=== PATIENT | female | born 1990 | race African-American/Black ===

== ENCOUNTER 2016-11-22 09:19 | Emergency (ER) | payer OTHER ==
[~2016-11-22] VITALS: Ht 152.4 cm; Wt 42.5 kg
[~2016-11-22 09:19] MED LIST: ACET500C5 PO; ALBU18HF INHALATION; ALBU8.5H3 INH; BENZ100C70 PO; CEPH-443 PO; CYCL-319 PO; DOCU-144 PO; GUAI-637 PO; HYDR-906 PO; IBUP-1542 PO; IBUP400T22 PO; LORA1TAB54 PO; NAPR-260 PO; NITR-58 PO; NPH10OT LEFT EAR; ONDA4TAB35 PO
[2016-11-22 09:31] VITALS: Ht 152.4 cm; Wt 42.5 kg
--- NOTE | 2016-11-22 10:25 | ERD ---
ER Documentation Chief Complaint Date/Time DATE: 11/22/16 TIME: 10:18 Chief Complaint HEADACHE SINCE THIS MORNING, BILATERAL FLANK PAIN (VAGUE ONSET) HPI This is a 26-year-old female presents emergency department for headache 1 day and chronic flank pain. Patient states she developed bitemporal headache this morning that feels like pressure. Patient denies this being the worst headache she is ever had or thunderclap type headache. Denies blurry vision, photophobia , diplopia, loss of vision or change in vision. Patient is alert. No loss of consciousness or altered level of consciousness. No confusion. No increased lethargy. Patient does report some nasal congestion. No cough, shortness breath or difficulty breathing. Denies any neck pain or stiffness. No dizziness, syncope or presyncope. Denies any weakness. No rash. Last menstrual period 11/14/2016. No head injury or trauma. Patient states she does have chronic flank pain that has been on and off since 2014. Patient has been seeing her primary care provider who diagnosed her with nephrolithiasis and "enlarged" kidneys. Patient denies any dysuria or hematuria. No pelvic pain, abdominal pain, nausea or vomiting. ROS All systems reviewed and are negative except as per history of present illness. Medications Home Meds Active Scripts Ibuprofen* (Motrin*) 400 Mg Tab, 400 MG PO Q6, #15 TAB Prov:JERRY PUENTES NP 11/22/16 Etcgewcavzsll-Hlwfhcorcf-Sunkyqng-Codeine* (Fioricet w/Codeine*) [id number] -30MG Cap, 1 CAP PO Q4H Y for PAIN LEVEL 1-5, #10 CAP Prov:JERRY PUENTES NP 11/22/16 Neomycin/Polymyxin/Hydrocort* (Cortisporin* Otic) 10 Ml Susp, 4 DROP LEFT EAR QID for 7 Days, EA Prov:POLINA FRANK PA-C 07/10/16 Albuterol Sulfate* (Ventolin HFA*) 18 Gm Hfa.aer.ad, 2 PUFF INHALATION Q4H, #1 INHALER Prov:POLINA FRANK PA-C 07/10/16 Loratadine/Pseudoephedrine* (Claritin-D* 12 Hr) 5-120 Mg Tab.er.12h, 1 TAB PO Q12, #15 TAB.SA Prov:POLINA FRANK PA-C 07/10/16 Benzonatate* (Tessalon Perle*) 100 Mg Capsule, 100 MG PO TID, #20 CAP Prov:POLINA FRANK PA-C 07/10/16 Cephalexin* (Keflex*) 500 Mg Capsule, 500 MG PO QID for 10 Days, CAP Prov:ELIECER BYRD NP 04/22/16 Cyclobenzaprine Hcl* (Cyclobenzaprine Hcl*) 10 Mg Tablet, 10 MG PO TID, #15 TAB Prov:ELIECER BYRD NP 04/22/16 Ibuprofen* (Motrin*) 600 Mg Tab, 600 MG PO Q6H Y for PAIN AND OR ELEVATED TEMP, #30 TAB Prov:ELIECER BYRD NP 04/22/16 Hydrocodone Bit-Acetaminophen ([place]) 5-325 Mg Tablet, 1 TAB PO QHS Y for PAIN for 7 Days, #7 TAB 0 Refills Prov:VANESSA POOL PA-C 01/12/16 Ibuprofen* (Motrin*) 400 Mg Tab, 400 MG PO Q6 for 7 Days, #30 TAB 0 Refills Prov:VANESSA POOL PA-C 01/12/16 Acetaminophen* (Tylophen*) 500 Mg Capsule, 500 MG PO Q6H Y for PAIN, #30 TAB Prov:POLINA FRANK PA-C 07/28/15 Ibuprofen* (Motrin*) 400 Mg Tab, 400 MG PO Q6H Y for PAIN AND OR ELEVATED TEMP, #30 TAB Prov:POLINA FRANK PA-C 07/28/15 Albuterol Sulfate* (Proair HFA*) 8.5 Gm Hfa.aer.ad, 2 PUFF INH Q4H Y for WHEEZING AND SOB, #1 INHALER Prov:POLINA FRANK PA-C 07/28/15 Nitrofurantoin Monohyd Macrocr* (Macrobid*) 100 Mg Capsr, 100 MG PO BID for 7 Days, CAP Prov:POLINA FRANK PA-C 07/28/15 Naproxen* (Naprosyn*) 500 Mg Tablet, 500 MG PO BID Y for PAIN AND/OR INFLAMMATION, #30 TAB Prov:RIVERA WALLACE 02/22/15 Ibuprofen* (Ibuprofen*) 600 Mg Tablet, 600 MG PO Q6 for 30 Days, TAB Prov:RIVERA WALLACE 02/22/15 Docusate Sodium* (Colace*) 100 Mg Capsule, 100 MG PO TID, #30 Prov:RIVERA WALLACE 02/22/15 Ondansetron Hcl* (Zofran* ODT) 4 mg -ODT Tab.disper, 4 MG PO Q6 Y for NAUSEA AND /OR VOMITING, #10 TAB Prov:RIVERA WALLACE 02/22/15 Reported Medications Guaifenesin* (Robitussin*) 100 Mg/5 Ml Syrup, 100 MG PO Q2H Y for COUGH, ML 05/07/14 Allergies Allergies: Coded Allergies: No Known Allergy (Unverified , 05/07/14) PMhx/Soc History of Surgery: No Anesthesia Reaction: No Hx Neurological Disorder: No Hx Respiratory Disorders: No Hx Cardiac Disorders: No Hx Psychiatric Problems: No Hx Miscellaneous Medical Probl: Yes (Kidney Stones January 2016) Hx Alcohol Use: No Hx Substance Use: Yes (Smokes weed) Hx Tobacco Use: No Smoking Status: Never smoker Physical Exam Vitals Vital Signs Date Time Temp Pulse Resp B/P Pulse Ox O2 Delivery O2 Flow Rate FiO2 11/22/16 09:31 99.4 61 16 134/82 100 Physical Exam Const: Alert, cut-wox-dqwqrpmmh, oriented to person place and time Head: Atraumatic Eyes: Normal Conjunctiva ENT: Normal External Ears, Nose and Mouth. Neck: Full range of motion..~ No meningismus. Resp: Clear to auscultation bilaterally. No wheezing, rhonchi or crackles. Cardio: Regular rate and rhythm, no murmurs Abd: Soft, non tender, non distended. Normal bowel sounds Skin: No petechiae or rashes Back: No midline or flank tenderness. No CVA tenderness Ext: No cyanosis, or edema Neur: Awake and alert Psych: Normal Mood and Affect Result Diagram: 11/22/16 1201 11/22/16 1201 Results 24 hrs Laboratory Tests Test 11/22/16 10:30 11/22/16 12:01 Bedside Urine pH (LAB) 5.5 Bedside Urine Protein (LAB) Negative Bedside Urine Glucose (UA) Negative Bedside Urine Ketones (LAB) 2+ Bedside Urine Blood 1+ Bedside Urine Nitrite (LAB) Negative Bedside Urine Leukocyte Esterase (L Negative White Blood Count 4.810^3/ul Red Blood Count 4.1410^6/ul Hemoglobin 12.5g/dl Hematocrit 38.9% Mean Corpuscular Volume 94.0fl Mean Corpuscular Hemoglobin 30.2pg Mean Corpuscular Hemoglobin Concent 32.1g/dl Red Cell Distribution Width 12.7% Platelet Count 63288^3/UL Mean Platelet Volume 8.9fl Neutrophils % 62.4% Lymphocytes % 27.9% Monocytes % 7.6% Eosinophils % 1.5% Basophils % 0.4% Nucleated Red Blood Cells % 0.0/100WBC Neutrophils # 3.010^3/ul Lymphocytes # 1.310^3/ul Monocytes # 0.410^3/ul Eosinophils # 0.110^3/ul Basophils # 0.010^3/ul Nucleated Red Blood Cells # 0.010^3/ul Sodium Level 136mmol/L Potassium Level 4.2mmol/L Chloride Level 104mmol/L Carbon Dioxide Level 26mmol/L Anion Gap 10 Blood Urea Nitrogen 8mg/dl Creatinine 0.66mg/dl Glucose Level 84mg/dl Calcium Level 9.8mg/dl Total Bilirubin 0.8mg/dl Direct Bilirubin 0.00mg/dl Indirect Bilirubin 0.8mg/dl Aspartate Amino Transf (AST/SGOT) 24IU/L Alanine Aminotransferase (ALT/SGPT) 18IU/L Alkaline Phosphatase 62IU/L Total Protein 8.1g/dl Albumin 4.7g/dl Globulin 3.40g/dl Albumin/Globulin Ratio 1.38 Current Medications Medications (Trade) Dose Ordered Sig/Glenny Route PRN Reason Start Time Stop Time Status Last Admin Dose Admin Acetam/Butalbital/ Caffeine/Codeine (Fioricet/ Codeine) 1 cap ONCE ONCE PO 11/22/16 10:30 11/22/16 10:31 DC 11/22/16 10:35 Procedures/MDM ED COURSE: The patient was stable throughout ED course. I kept the patient and/or family informed of laboratory and diagnostic imaging results throughout the ED course. Laboratory CBC shows no significant infection or anemia CMP no significant electrolyte imbalance Urine dip 1+ blood, 2+ ketones Patient: HIPOLITO ROCK : 1990 Age: 26 Sex: F MR #: [id number] [facility] #: [id number] DOS: 11/22/16 1048 Ordering MD: JERRY PUENTES NP Location: [facility]TE Room/Bed: PROCEDURE: Renal US. CLINICAL INDICATION: Flank pain TECHNIQUE: Multiple sonographic images of the kidneys were obtained. The images were reviewed on a PACS workstation. COMPARISON: No prior studies are available for comparison. FINDINGS: The right kidney measures 8.4 cm. The left kidney measures 10.4 cm. The kidneys demonstrate normal echogenicity. No masses, stones or hydronephrosis are identified. The bladder is collapsed. IMPRESSION: Small, but otherwise unremarkable right kidney. Unremarkable left kidney. MDM: This is a 26-year-old female presenting to emergency department for headache 1 day starting this morning. Patient feels pressure to bitemporal area. Patient has not tried any medications for this prior to arrival. Patient given Fioricet with codeine while in the ED. No neuro deficits. Patient does have some nasal congestion. No vision changes, blurry vision, photophobia, diplopia, loss of vision or change in vision. Denies neck pain or stiffness. No dizziness, weakness or fainting. Denies any muscle weakness, numbness, tingling or problems with balance or speech. Denies dysuria or hematuria. No abdominal pain, pelvic pain, nausea, vomiting or diarrhea. Urine negative for infection. Renal ultrasound reviewed by radiologist as small but otherwise unremarkable right kidney. Unremarkable left kidney. Upon reassessment, patient states headache has resolved. Patient states she continues to have flank pain. This is a chronic problem that she has had for the past few years since 2015. Differential diagnosis includes but not limited to migraine headache, cluster headache, tension headache TMJ, sinus headache, nephrolithiasis, Low suspicion for meningitis, encephalitis, subarachnoid hemorrhage, subdural hematoma, intracranial bleeding or tumor or obstructive uropathy. Patient is appropriate for outpatient management and instructed to follow-up with primary care provider for repeat assessment and additional management. Return to ED for any high fever, chest pain, difficulty breathing, shortness breath, wheezing, vomiting, diarrhea, abdominal pain or any new or worsening symptoms. Patient verbalizes understanding. All questions answered at discharge. Departure Diagnosis: Primary Impression: Headache Headache type: unspecified Headache chronicity pattern: acute headache Intractability: not intractable Qualified Code: R51 - Acute nonintractable headache, unspecified headache type Additional Impression: Flank pain Condition: Stable JERRY PUENTES NP Nov 22, 2016 10:24
[2016-11-22 10:29] LABS: URINE BLOOD (Dip) POC 1+ (NEGATIVE)
[2016-11-22] MEDS ORDERED: ACET/BUTAL/CAFF/CODEINE CAP PO ONE (10:30)
[2016-11-22 12:18] LABS: ADD SCAN DIFF NO
[2016-11-22 12:22] LABS: BASOPHILS % 0.4 % (0.0-2.0); EOSINOPHILS # 0.1 10^3/ul (0.0-0.5); EOSINOPHILS % 1.5 % (0.0-7.0); HEMATOCRIT 38.9 % (37.0-47.0); HEMOGLOBIN 12.5 g/dl (12.0-16.0); LYMPHOCYTES # 1.3 10^3/ul (0.8-2.9); LYMPHOCYTES % 27.9 % (15.0-51.0); MEAN CORPUSCULAR HEMOGLOBIN 30.2 pg (29.0-33.0); MEAN CORPUSCULAR HGB CONC 32.1 g/dl (32.0-37.0); MEAN PLATELET VOLUME 8.9 fl (7.4-10.4); MONOCYTE # 0.4 10^3/ul (0.3-0.9); MONOCYTES % 7.6 % (0.0-11.0); NEUTROPHILS % 62.4 % (39.0-77.0); PLATELET COUNT 318 10^3/UL (140-415); RED BLOOD COUNT 4.14 10^6/ul (4.20-5.40); RED CELL DISTRIBUTION WIDTH 12.7 % (11.5-14.5); WHITE BLOOD COUNT 4.8 10^3/ul (4.8-10.8)
[2016-11-22 12:35] LABS: ALBUMIN 4.7 g/dl (3.3-4.9); ALBUMIN/GLOBULIN RATIO 1.38; BILIRUBIN,INDIRECT 0.8 mg/dl (0-1.1); BILIRUBIN,TOTAL 0.8 mg/dl (0.2-1.3); CALCIUM 9.8 mg/dl (8.4-10.2); CREATININE 0.66 mg/dl (0.44-1.00); POTASSIUM 4.2 mmol/L (3.5-5.1); TOTAL PROTEIN 8.1 g/dl (6.1-8.1)
--- NOTE | 2016-11-22 13:00 | RADRPT ---
PROCEDURE: Renal US. CLINICAL INDICATION: Flank pain TECHNIQUE: Multiple sonographic images of the kidneys were obtained. The images were reviewed on a PACS workstation. COMPARISON: No prior studies are available for comparison. FINDINGS: The right kidney measures 8.4 cm. The left kidney measures 10.4 cm. The kidneys demonstrate normal e chogenicity. No masses, stones or hydronephrosis are identified. The bladder is collapsed. IMPRESSION: Small, but otherwise unremarkable right kidney. Unremarkable left kidney. RPTAT: AA .Braxton Davis MD, Date Time Electronically viewed and signed by .Braxton Davis MD, on 11/22/2016 12:59 .P/
[2016-11-22] MEDS ORDERED: ABCC1C PO (13:21)
[2016-11-22] MEDS ORDERED: IBUP400T22 PO (13:21)
== END 2016-11-22 13:47 | disposition home or self-care (01) ==
LOC: FTE 09:19
DX: R51 Headache (principal); R10.9 Unspecified abdominal pain
CPT/HCPCS: 76775; 80053; 81003; 85025; Z7502; Z7610

== ENCOUNTER 2017-05-09 09:21 | Emergency (ER) | payer MEDICAID, OTHER ==
[~2017-05-09] VITALS: Ht 165.1 cm; Wt 55.0 kg
[~2017-05-09 09:21] MED LIST changes: +ABCC1C PO
[2017-05-09 09:24] VITALS: Ht 165.1 cm; Wt 55.0 kg
--- NOTE | 2017-05-09 10:15 | ERD ---
ER Documentation Chief Complaint Date/Time DATE: 05/09/17 TIME: 10:13 Chief Complaint Complains of SOB with back and chestt Hx of Asthma HPI Patient is a 27-year-old female with history of asthma who presents to the ER with 2-3 days of cough productive of brownish sputum, mild shortness of breath, and cough. She reports pain on deep inspiration in the chest and back. She denies hemoptysis. She denies fever. She denies chest pain at rest. She reports smoking marijuana 3 times a day. She denies tobacco use. She states that she ran out of her inhaler.Patient also reports having nasal congestion. She denies sore throat. She does not take oral contraceptive pills. ROS All systems reviewed and are negative except as per history of present illness. Medications Home Meds Active Scripts Prednisone* (Prednisone*) 20 Mg Tab, 40 MG PO DAILY for 4 Days, TAB Prov:THAIS DAS MD 05/09/17 Albuterol Sulfate* (Proair HFA*) 8.5 Gm Hfa.aer.ad, 2 PUFF INH Q4H Y for WHEEZING AND SOB, #1 INHALER Prov:THAIS DAS MD 05/09/17 Ibuprofen* (Motrin*) 400 Mg Tab, 400 MG PO Q6, #15 TAB Prov:JERRY PUENTES NP 11/22/16 Ilmjxztpbvisw-Yedpxeurex-Liwkgecb-Codeine* (Fioricet w/Codeine*) [id number] -30MG Cap, 1 CAP PO Q4H Y for PAIN LEVEL 1-5, #10 CAP Prov:JERRY PUENTES NP 11/22/16 Neomycin/Polymyxin/Hydrocort* (Cortisporin* Otic) 10 Ml Susp, 4 DROP LEFT EAR QID for 7 Days, EA Prov:POLINA FRANK PA-C 07/10/16 Albuterol Sulfate* (Ventolin HFA*) 18 Gm Hfa.aer.ad, 2 PUFF INHALATION Q4H, #1 INHALER Prov:POLINA FRANK PA-C 07/10/16 Loratadine/Pseudoephedrine* (Claritin-D* 12 Hr) 5-120 Mg Tab.er.12h, 1 TAB PO Q12, #15 TAB.SA Prov:POLINA FRANK PA-C 07/10/16 Benzonatate* (Tessalon Perle*) 100 Mg Capsule, 100 MG PO TID, #20 CAP Prov:POLINA FRANK PA-C 07/10/16 Cephalexin* (Keflex*) 500 Mg Capsule, 500 MG PO QID for 10 Days, CAP Prov:ELIECER BYRD NP 04/22/16 Cyclobenzaprine Hcl* (Cyclobenzaprine Hcl*) 10 Mg Tablet, 10 MG PO TID, #15 TAB Prov:ELIECER BYRD [employer]ERING [employer] 04/22/16 Ibuprofen* (Motrin*) 600 Mg Tab, 600 MG PO Q6H Y for PAIN AND OR ELEVATED TEMP, #30 TAB Prov:ELIECER BYRD [employer] ENG[employer]ERING TE[employer]ER 04/22/16 Hydrocodone Bit-Acetaminophen ([place]) 5-325 Mg Tablet, 1 TAB PO QHS Y for PAIN for 7 Days, #7 TAB 0 Refills Prov:VANESSA POOL PA-C 01/12/16 Ibuprofen* (Motrin*) 400 Mg Tab, 400 MG PO Q6 for 7 Days, #30 TAB 0 Refills Prov:VANESSA POOL PA-C 01/12/16 Acetaminophen* (Tylophen*) 500 Mg Capsule, 500 MG PO Q6H Y for PAIN, #30 TAB Prov:POLINA FRANK PA-C 07/28/15 Ibuprofen* (Motrin*) 400 Mg Tab, 400 MG PO Q6H Y for PAIN AND OR ELEVATED TEMP, #30 TAB Prov:POLINA FRANK PA-C 07/28/15 Albuterol Sulfate* (Proair HFA*) 8.5 Gm Hfa.aer.ad, 2 PUFF INH Q4H Y for WHEEZING AND SOB, #1 INHALER Prov:POLINA FRANK PA-C 07/28/15 Nitrofurantoin Monohyd Macrocr* (Macrobid*) 100 Mg Capsr, 100 MG PO BID for 7 Days, CAP Prov:POLINA FRANK PA-C 07/28/15 Naproxen* (Naprosyn*) 500 Mg Tablet, 500 MG PO BID Y for PAIN AND/OR INFLAMMATION, #30 TAB Prov:RIVERA WALLACE 02/22/15 Ibuprofen* (Ibuprofen*) 600 Mg Tablet, 600 MG PO Q6 for 30 Days, TAB Prov:RIVERA WALLACE 02/22/15 Docusate Sodium* (Colace*) 100 Mg Capsule, 100 MG PO TID, #30 Prov:RIVERA WALLACE 02/22/15 Ondansetron Hcl* (Zofran* ODT) 4 mg -ODT Tab.disper, 4 MG PO Q6 Y for NAUSEA AND /OR VOMITING, #10 TAB Prov:RIVERA WALLACE 02/22/15 Reported Medications Guaifenesin* (Robitussin*) 100 Mg/5 Ml Syrup, 100 MG PO Q2H Y for COUGH, ML 05/07/14 Allergies Allergies: Coded Allergies: No Known Allergy (Unverified , 05/07/14) PMhx/Soc Past medical history: Asthma Past surgical history: None Social history: Smokes marijuana daily, denies alcohol or tobacco History of Surgery: No Anesthesia Reaction: No Hx Neurological Disorder: No Hx Respiratory Disorders: No Hx Cardiac Disorders: No Hx Psychiatric Problems: No Hx Miscellaneous Medical Probl: Yes (Kidney Stones January 2016) Hx Alcohol Use: No Hx Substance Use: Yes (Smokes weed) Hx Tobacco Use: No FmHx Family History: No coronary disease, No diabetes Physical Exam Vitals Vital Signs Date Time Temp Pulse Resp B/P Pulse Ox O2 Delivery O2 Flow Rate FiO2 05/09/17 11:31 98.2 82 19 122/65 100 Room Air 05/09/17 09:24 98.7 82 20 127/80 99 Physical Exam Const: Alert, no acute distress Head: Atraumatic Eyes: Normal Conjunctiva, No pallor, no icterus ENT: Normal External Ears, Nose and Mouth. Mucous membranes moist Neck: Full range of motion..~ No meningismus. Resp: Clear to auscultation bilaterally, No wheezes, no rales Cardio: Regular rate and rhythm, no murmurs Abd: Soft, non tender, non distended. Normal bowel sounds Skin: No petechiae or rashes Back: No midline or flank tenderness Ext: No cyanosis, or edema Neur: Awake and alert Psych: Normal Mood and Affect Procedures/MDM MDM: Patient is a 27-year-old female who presents with productive cough for 3 days associated with shortness of breath and chest and back pain. Chest x-ray is negative. She has normal vital signs. She is PERC negative. Symptoms are consistent with bronchitis. The patient smokes marijuana regularly and has history of asthma. I will prescribe her an albuterol inhaler and a short course of steroids. She was advised to return to the ER if she has fever, worsening symptoms, or other concerns. Departure Diagnosis: Primary Impression: Bronchitis Condition: THAIS Pires MD May 09, 2017 10:15
--- NOTE | 2017-05-09 11:02 | RADRPT ---
PROCEDURE: XR Chest. CLINICAL INDICATION: Shortness of breath TECHNIQUE: Single portable view of the chest was obtained. COMPARISON: 07/10/2016 FINDINGS: Normal cardiomediastinal silhouette. The lungs are clear. No pleural effusion or pneumothorax. IMPRESSION: No acute cardiopulmonary disease. RPTAT:AAJJ Physician Dontae Date Time Electronically viewed and signed by Ryanne Andres Physician on 05/09/2017 11:02 /
[2017-05-09] MEDS ORDERED: PRED20TA PO (11:08)
[2017-05-09] MEDS ORDERED: ALBU8.5H3 INH (11:08)
[2017-05-09 11:31] VITALS: BP 122/65; PULSE 82; RESP 19; TEMP 98.2
== END 2017-05-09 11:32 | disposition home or self-care (01) ==
LOC: FTE 09:21
DX: J45.909 Unspecified asthma, uncomplicated (principal)
CPT/HCPCS: 71010; Z7502

== ENCOUNTER 2017-07-01 10:57 | Emergency (ER) | payer OTHER ==
[~2017-07-01] VITALS: Wt 53.0 kg
[~2017-07-01 10:57] MED LIST changes: +PRED20TA PO
--- NOTE | 2017-07-01 11:58 | ERD ---
ER Documentation Chief Complaint Chief Complaint THROAT PAIN, BACK PAIN HPI Otherwise healthy 27-year-old female presenting with the chief complaints of pharyngitis 2 days. Denies fever, cough, difficulty breathing, dysphagia, change in voice, drooling, fatigue, oral swelling, ear pain, or meningismus. Patients vaccination status is up to date. Patient has no other complaints and describes no other associated manifestations. Nursing notes have been reviewed and are consistent with history given. ROS All systems reviewed and are negative except as per history of present illness. Medications Home Meds Active Scripts Amoxicillin* (Amoxicillin*) 500 Mg Cap, 500 MG PO TID for 10 Days, CAP Prov:LORI BEASLEY PA-C 07/01/17 Prednisone* (Prednisone*) 20 Mg Tab, 40 MG PO DAILY for 4 Days, TAB Prov:THAIS DAS MD 05/09/17 Albuterol Sulfate* (Proair HFA*) 8.5 Gm Hfa.aer.ad, 2 PUFF INH Q4H Y for WHEEZING AND SOB, #1 INHALER Prov:THAIS DAS MD 05/09/17 Ibuprofen* (Motrin*) 400 Mg Tab, 400 MG PO Q6, #15 TAB Prov:JERRY PUENTES NP 11/22/16 Ttxzbypstfctm-Dkmdwjgkdk-Hktxpsct-Codeine* (Fioricet w/Codeine*) [id number] -30MG Cap, 1 CAP PO Q4H Y for PAIN LEVEL 1-5, #10 CAP Prov:JERRY PUENTES NP 11/22/16 Neomycin/Polymyxin/Hydrocort* (Cortisporin* Otic) 10 Ml Susp, 4 DROP LEFT EAR QID for 7 Days, EA Prov:POLINA FRANK PA-C 07/10/16 Albuterol Sulfate* (Ventolin HFA*) 18 Gm Hfa.aer.ad, 2 PUFF INHALATION Q4H, #1 INHALER Prov:POLINA FRANK PA-C 07/10/16 Loratadine/Pseudoephedrine* (Claritin-D* 12 Hr) 5-120 Mg Tab.er.12h, 1 TAB PO Q12, #15 TAB.SA Prov:POLINA FRANK PA-C 07/10/16 Benzonatate* (Tessalon Perle*) 100 Mg Capsule, 100 MG PO TID, #20 CAP Prov:POLINA FRANK PA-C 07/10/16 Cephalexin* (Keflex*) 500 Mg Capsule, 500 MG PO QID for 10 Days, CAP Prov:ELIECER BYRD NP 04/22/16 Cyclobenzaprine Hcl* (Cyclobenzaprine Hcl*) 10 Mg Tablet, 10 MG PO TID, #15 TAB Prov:ELIECER BYRD NP 04/22/16 Ibuprofen* (Motrin*) 600 Mg Tab, 600 MG PO Q6H Y for PAIN AND OR ELEVATED TEMP, #30 TAB Prov:ELIECER BYRD NP 04/22/16 Hydrocodone Bit-Acetaminophen ([place]) 5-325 Mg Tablet, 1 TAB PO QHS Y for PAIN for 7 Days, #7 TAB 0 Refills Prov:VANESSA POOL PA-C 01/12/16 Ibuprofen* (Motrin*) 400 Mg Tab, 400 MG PO Q6 for 7 Days, #30 TAB 0 Refills Prov:VANESSA POOL PA-C 01/12/16 Acetaminophen* (Tylophen*) 500 Mg Capsule, 500 MG PO Q6H Y for PAIN, #30 TAB Prov:POLINA FRANK PA-C 07/28/15 Ibuprofen* (Motrin*) 400 Mg Tab, 400 MG PO Q6H Y for PAIN AND OR ELEVATED TEMP, #30 TAB Prov:POLINA FRANK PA-C 07/28/15 Albuterol Sulfate* (Proair HFA*) 8.5 Gm Hfa.aer.ad, 2 PUFF INH Q4H Y for WHEEZING AND SOB, #1 INHALER Prov:POLINA FRANK PA-C 07/28/15 Nitrofurantoin Monohyd Macrocr* (Macrobid*) 100 Mg Capsr, 100 MG PO BID for 7 Days, CAP Prov:POLINA FRANK PA-C 07/28/15 Naproxen* (Naprosyn*) 500 Mg Tablet, 500 MG PO BID Y for PAIN AND/OR INFLAMMATION, #30 TAB Prov:RIVERA WALLACE 02/22/15 Ibuprofen* (Ibuprofen*) 600 Mg Tablet, 600 MG PO Q6 for 30 Days, TAB Prov:RIVERA WALLACE 02/22/15 Docusate Sodium* (Colace*) 100 Mg Capsule, 100 MG PO TID, #30 Prov:RIVERA WALLACE 02/22/15 Ondansetron Hcl* (Zofran* ODT) 4 mg -ODT Tab.disper, 4 MG PO Q6 Y for NAUSEA AND /OR VOMITING, #10 TAB Prov:RIVERA WALLACE 02/22/15 Reported Medications Guaifenesin* (Robitussin*) 100 Mg/5 Ml Syrup, 100 MG PO Q2H Y for COUGH, ML 05/07/14 Allergies Allergies: Coded Allergies: prednisone (Unverified Allergy, Intermediate, 07/01/17) PMhx/Soc History of Surgery: No Anesthesia Reaction: No Hx Neurological Disorder: No Hx Respiratory Disorders: No Hx Cardiac Disorders: No Hx Psychiatric Problems: No Hx Miscellaneous Medical Probl: Yes (Kidney Stones January 2016) Hx Alcohol Use: No Hx Substance Use: Yes (Smokes weed) Hx Tobacco Use: No Physical Exam Vitals Vital Signs Date Time Temp Pulse Resp B/P Pulse Ox O2 Delivery O2 Flow Rate FiO2 07/01/17 11:02 98.6 69 17 121/65 100 Physical Exam Const: Healthy-appearing, well-nourished, well-developed, no acute distress. Throat: Erythematous oropharynx without exudates. Tonsils within normal limits. Moist mucous membranes. Neck: Tender anterior cervical lymphadenopathy palpated bilaterally. No posterior cervical lymphadenopathy, masses or goiter palpated. Trachea midline. Full range of motion. Supple. ~ No meningismus. Skin: No petechiae or rashes. No ulcer, induration, jaundice. Good turgor. Resp: No dyspnea, stridor, tripoding or drooling. Good air movement. Clear to auscultation bilaterally. Head: Normocephalic, Atraumatic. Eyes: Non-injected; No scleral erythema, discharge or foreign body. EOMI bilaterally. PERRLA. Ears: Normal External Ears, EACs clear, TM normal bilaterally without erythema. Nose: Normal nose without discharge, septal deviation, or sinus tenderness. Cardio: Regular rate and rhythm; No murmurs, gallops or rubs auscultated. No JVD grossly observed. Radial and posterior tibial pulses 2+ bilaterally. Capillary refill less than 2 seconds. Neur: Awake, alert and oriented x3. Neurovascularly intact bilaterally. Psych: Normal Mood and Affect. Results 24 hrs Current Medications Medications (Trade) Dose Ordered Sig/Glenny Route PRN Reason Start Time Stop Time Status Last Admin Dose Admin Prednisone (Prednisone) 60 mg ONCE ONCE PO 07/01/17 12:00 07/01/17 12:20 DC Procedures/MDM Patient was evaluated and worked up for pharyngitis presenting as described in the history and physical exam. ED treatment consisted of prednisone 60 mg with relief of symptoms. The patient has a [place] [facility] Criteria of 3 out of 5. The current most likely diagnosis is viral strep. The treatment plan will thus include out-patient antibiotics due to persistence in requesting and stating amoxicillin has worked in the past, as well as supportive measures. At this time I do not suspect diphtheria, EBV, peritonsillar abscess, epiglottitis, retropharyngeal abscess, or parapharyngeal abscess. I no longer have suspicion for endangerment of the airway. I have spoke with the patients regarding their condition and future management. They have verbally responded that they understand and agree with their status and treatment plan. The patient s vitals are stable, and their current condition is appropriate for discharge. The patient will be given discharge instructions with return precautions. Departure Diagnosis: Primary Impression: Sore throat Condition: Stable Additional Instructions: Follow up with your PCP within the next 1-3 days for a more thorough evaluation and a possible referral to a specialist. Return the the emergency department immediately if symptoms worsen or change. If you have any questions regarding medications, ask your pharmacist or us before you leave. If any adverse reactions occur while taking your medications, discontinue the treatment and return to the emergency department immediately. Take your medications as directed, and complete the entire course of treatment. LORI BEASLEY PA-C Jul 01, 2017 11:58
[2017-07-01] MEDS ORDERED: predniSONE 20 MG TAB PO ONE (12:00)
[2017-07-01] MEDS ORDERED: AMOX500C2 PO (12:21)
== END 2017-07-01 12:47 | disposition home or self-care (01) ==
LOC: FTE 10:57
DX: J02.9 Acute pharyngitis, unspecified (principal)
CPT/HCPCS: 99283; J7512

== ENCOUNTER 2018-11-04 09:54 | Emergency (ER) | payer OTHER ==
[~2018-11-04] VITALS: Ht 152.4 cm; Wt 46.3 kg
[~2018-11-04 09:54] MED LIST changes: -ALBU8.5H3 INH; +ALBU8.5H8 INH; +AMOX500C2 PO; +BENZ-6 PO; -BENZ100C70 PO; -CYCL-319 PO; +CYCL10TA7 PO; +IBUP-1561 PO; -IBUP400T22 PO; -NAPR-260 PO; +NAPR-985 PO
[2018-11-04 09:58] VITALS: Ht 152.4 cm; Wt 46.3 kg
[2018-11-04] MEDS ORDERED: IPRATROPIUM (NEB) 0.5 MG/2.5 ML AMP NEB STA (10:39)
[2018-11-04] MEDS ORDERED: ALBUTEROL 0.083% (NEB) 2.5 MG/3 ML AMP NEB STA (10:39)
--- NOTE | 2018-11-04 11:03 | ERD ---
ER Documentation Chief Complaint Chief Complaint cough & repeated asthma attacks x3 days HPI 28-year-old female with past medical history of asthma (no previous history of intubation) who presents with 3-day complaint of productive cough and vague neck pain. Has had cough productive of yellow sputum. She otherwise denies fevers but has had some chills. Has had chest tightness as well with deep inspiration more prominent on the left. Scribes a vague intermittent anterior neck pain but denies any issues swallowing liquids or solids, muffled voice, hemoptysis. Has been taking her inhalers and was recently prescribed Pro Air as well as Dulera. States she ran out of her albuterol pump. Has had angina and recently saw her feller buncher operator earlier this year and had a stress test last month and has not received the results yet. Reports EKGs and echo done in the past without acute findings. States she typically has angina when she has asthma flares. Reports usual triggers as cold air and sometimes allergies. She otherwise is without acute complaint. At time of examination patient is nontoxic-appearing speaking in full sentences and in no acute distress. Triage vital signs without fever or hypoxia. ROS All systems reviewed and are negative except as per history of present illness. Medications Home Meds Active Scripts Hydrocodone/Acetaminophen ([place] 5-325 Tablet) 1 Each Tablet, 1 EACH PO Q6 for 7 Days, TAB Prov:BINH MOTA PA-C 11/04/18 Amoxicillin* (Amoxicillin*) 500 Mg Cap, 500 MG PO TID for 10 Days, CAP Prov:LORI BEASLEY PA-C 07/01/17 Prednisone* (Prednisone*) 20 Mg Tab, 40 MG PO DAILY for 4 Days, TAB Prov:THAIS DAS MD 05/09/17 Albuterol Sulfate* (Proair HFA*) 8.5 Gm Hfa.aer.ad, 2 PUFF INH Q4H PRN for WHEEZING AND SOB, #1 INHALER Prov:THAIS DAS MD 05/09/17 Ibuprofen* (Motrin*) 400 Mg Tab, 400 MG PO Q6, #15 TAB Prov:JERRY PUENTES NP 11/22/16 Juqmmvzsqlxzb-Gbnkgnnpso-Raedlkap-Codeine* (Fioricet w/Codeine*) [id number] Cap, 1 CAP PO Q4H PRN for PAIN LEVEL 1-5, #10 CAP Prov:JERRY PUENTES LINKING MACHINE OPERATOR 11/22/16 Neomycin/Polymyxin/Hydrocort* (Cortisporin* Otic) 10 Ml Susp, 4 DROP LEFT EAR QID for 7 Days, EA Prov:POLINA FRANK PA-C 07/10/16 Albuterol Sulfate* (Ventolin HFA*) 18 Gm Hfa.aer.ad, 2 PUFF INHALATION Q4H, #1 INHALER Prov:POLINA FRANK PA-C 07/10/16 Loratadine/Pseudoephedrine* (Claritin-D* 12 Hr) 5-120 Mg Tab.er.12h, 1 TAB PO Q12, #15 TAB.SA Prov:POLINA FRANK PA-C 07/10/16 Benzonatate* (Tessalon Perle*) 100 Mg Capsule, 100 MG PO TID, #20 CAP Prov:POLINA FRANK PA-C 07/10/16 Cephalexin* (Keflex*) 500 Mg Capsule, 500 MG PO QID for 10 Days, CAP Prov:ELIECER BYRD LINKING MACHINE OPERATOR 04/22/16 Cyclobenzaprine Hcl* (Cyclobenzaprine Hcl*) 10 Mg Tablet, 10 MG PO TID, #15 TAB Prov:ELIECER BYRD LINKING MACHINE OPERATOR 04/22/16 Ibuprofen* (Motrin*) 600 Mg Tab, 600 MG PO Q6H PRN for PAIN AND OR ELEVATED TEMP, #30 TAB Prov:ELIECER BYRD LINKING MACHINE OPERATOR 04/22/16 Hydrocodone Bit-Acetaminophen ([place]) 5-325 Mg Tablet, 1 TAB PO QHS PRN for PAIN for 7 Days, #7 TAB 0 Refills Prov:VANESSA POOL PA-C 01/12/16 Ibuprofen* (Motrin*) 400 Mg Tab, 400 MG PO Q6 for 7 Days, #30 TAB 0 Refills Prov:VANESSA POOL PA-C 01/12/16 Acetaminophen* (Tylophen*) 500 Mg Capsule, 500 MG PO Q6H PRN for PAIN, #30 TAB Prov:POLINA FRANK PA-C 07/28/15 Ibuprofen* (Motrin*) 400 Mg Tab, 400 MG PO Q6H PRN for PAIN AND OR ELEVATED TEMP, #30 TAB Prov:POLINA FRANK PA-C 07/28/15 Albuterol Sulfate* (Proair HFA*) 8.5 Gm Hfa.aer.ad, 2 PUFF INH Q4H PRN for WHEEZING AND SOB, #1 INHALER Prov:POLINA FRANK PA-C 07/28/15 Nitrofurantoin Monohyd Macrocr* (Macrobid*) 100 Mg Capsr, 100 MG PO BID for 7 Days, CAP Prov:POLINA FRANK PA-C 07/28/15 Naproxen* (Naprosyn*) 500 Mg Tablet, 500 MG PO BID PRN for PAIN AND/OR INFLAMMATION, #30 TAB Prov:RIVERA WALLACE 02/22/15 Ibuprofen* (Ibuprofen*) 600 Mg Tablet, 600 MG PO Q6 for 30 Days, TAB Prov:RIVERA WALLACE 02/22/15 Docusate Sodium* (Colace*) 100 Mg Capsule, 100 MG PO TID, #30 Prov:RIVERA WALLACE 02/22/15 Ondansetron Hcl* (Zofran* ODT) 4 mg -ODT Tab.disper, 4 MG PO Q6 PRN for NAUSEA AND/OR VOMITING, #10 TAB Prov:RIVERA WALLACE 02/22/15 Reported Medications Guaifenesin* (Robitussin*) 100 Mg/5 Ml Syrup, 100 MG PO Q2H PRN for COUGH, ML 05/07/14 Allergies Allergies: Coded Allergies: prednisone (Unverified Allergy, Intermediate, 07/01/17) PMhx/Soc History of Surgery: No Anesthesia Reaction: No Hx Neurological Disorder: No Hx Respiratory Disorders: Yes (asthma) Hx Cardiac Disorders: Yes (angina) Hx Psychiatric Problems: No Hx Miscellaneous Medical Probl: Yes (Kidney Stones January 2016) Hx Alcohol Use: No Hx Substance Use: Yes (Smokes weed) Hx Tobacco Use: No FmHx Family History: No diabetes, No coronary disease, No other Physical Exam Vitals Vital Signs Date Temp Pulse Resp B/P (MAP) Pulse Ox O2 O2 Flow FiO2 Time Delivery Rate 11/04/18 80 19 96 21 11:10 11/04/18 98.1 88 20 144/65 100 09:58 (91) Physical Exam I have reviewed the triage vital signs. Const: Well nourished, well developed, appears stated age Eyes: PERRL, no conjunctival injection HENT: NCAT, Neck supple without meningismus CV: RRR, Warm, well-perfused extremities,, chst wall non tender RESP: no wheezing or rhonci, Unlabored respiratory effort, poor inspiratory effo rt GI: soft, non-tender, non-distended, no masses MSK: No gross deformities appreciated Skin: Warm, dry. No rashes Neuro: grossly non focal Psych: Appropriate mood and affect. Results 24 hrs Current Medications Medications Dose Sig/Glenny Start Time Status Last (Trade) Ordered Route PRN Stop Time Admin Dose Reason Admin Albuterol 2.5 mg ONCE STAT 11/04/18 DC 11/04/18 (Proventil NEB 10:39 11/04/18 11:07 0.083% (Neb)) 10:48 Ipratropium 0.5 mg ONCE STAT 11/04/18 DC 11/04/18 [place] NEB 10:39 11/04/18 11:07 (Atrovent 10:48 0.02% (Neb)) Procedures/MDM 28-year-old female with past medical history of asthma and unexplained angina who presents with complaint of cough. Presents with cough but no wheezing on exam ML 2/2 asthma exacerbation although not very impressive given stable O2 saturations exam. Mild exacerbation: No AMS, silent respirations, belly-breathing, or other sign of impending ventilatory failure. Patient diagnosed with asthma years prior. Never intubated or admitted to the hospital for asthma exacerbation. Unlikely PNA, CHF, COPD (Nonsmoker), FBAO, GERD. Has history of unexplained angina which she had a recent stress test 4. EKG here is within normal limits without ischemic changes. I have stressed her the importance of following up the results of recent stress test and following up with her feller buncher operator. With regard to neck pain and peritracheal findings on chest x-ray a CT of the chest was done for further evaluation. CT with no findings to explain patient's symptoms of neck pain. Patient states she has follow-up for a plan ultrasound for further evaluation. I have instructed her to follow-up with her PMD for further workup as emergent causes of her symptoms have been essentially ruled out. Workup Defer labs and imaging given clinically in exacerbation of known asthma with similar exacerbation presentations per patient. EKG without acute findings NSR 74 BMP Cxr without evidence of infection CT of chest IMPRESSION: No evidence of mediastinal adenopathy, mass or hematoma, with attention to the left paratracheal soft tissues. Anatomic considerations contributing to left paratracheal density on radiograph include slight relative rightward position of the trachea in relation to levoscoliotic upper thoracic spine, as well as adjacent vessels. No CT evidence of acute or suspicious pulmonary findings including air space disease, pleural effusion, or nodules. Therapies: Albuterol 2.5-5mg q20min x3 OR 15mg/hr Ipratropium 0.5mg x1 Reassessment: Patient with no wheezing on exam appearing very comfortable with stable O2 saturations. Still with complaint of vague neck pain but no issues swallowing or drinking. Disposition: Discharge home with return precautions. Aside from this acute exacerbation patient has been well controlled on baseline home regimen. no plan to increase home asthma regimen, no steroids on discharge Advised to follow up with primary care physician within next 24-48 hours. Follow up with the manager embalmer funeral director for results of stress test and any further workup Folow up with PMD and all appropriate specialist DISPOSITION PLAN: We discussed follow up with the patient's primary care doctor within 24 to 48 hours. Patient counseled regarding my diagnostic impression and care plan. Prior to discharge all questions answered. Pt agrees with treatment plan and understands strict return precautions. Precautionary instructions provided including instructions to return to the ER if not improving or for any worsening or changing symptoms or concerns. Departure Diagnosis: Primary Impression: Neck pain Condition: Stable BINH MOTA PA-C Nov 04, 2018 11:03
[2018-11-04] MEDS ORDERED: HYDR-4011 PO (15:11)
[2018-11-04 15:26] VITALS: BP 114/62; PULSE 85; RESP 20
== END 2018-11-04 15:27 | disposition home or self-care (01) ==
LOC: FTE 09:54
DX: M54.2 Cervicalgia (principal); J45.909 Unspecified asthma, uncomplicated
CPT/HCPCS: 71046; 71250; 94664; Z7502; Z7610